=== PATIENT | female | born 1975 | race Caucasian/White ===

== ENCOUNTER 2023-02-27 17:14 | Inpatient (IN) | payer OTHER ==
[2023-02-27 19:26] VITALS: BMI 22.5
[2023-02-27] MEDS ORDERED: MAG HYDROX/AL HYDROX/SIMETH 30 ML UNIT-DOSE CUP PO PRN (21:58)
[2023-02-27] MEDS ORDERED: NALOXONE HCL 0.4 MG/ML VIAL IM PRN (21:58)
[2023-02-27] MEDS ORDERED: guaiFENesin 600 MG TABLET.ER (FP) PO PRN (21:58)
[2023-02-27] MEDS ORDERED: ONDANSETRON *ODT* 4 MG TABLET SL PRN (21:58)
[2023-02-27] MEDS ORDERED: MAGNESIUM HYDROX 2400MG/30ML ORAL SUSPENSION 30 ML CUP PO PRN (21:58)
[2023-02-27] MEDS ORDERED: LOPERAMIDE HCL 2 MG CAPSULE PO PRN (21:58)
[2023-02-27] MEDS ORDERED: chlordiazePOXIDE HCL 25 MG CAPSULE PO PRN (21:58)
[2023-02-27] MEDS ORDERED: BISMUTH SUBSALICYLATE 524 MG/30 ML PO PRN (21:58)
[2023-02-27] MEDS ORDERED: BENZOCAINE/MENTHOL (CHLORASEPTIC ) LOZENGE MM PRN (21:58)
[2023-02-27] MEDS ORDERED: POLYETHYLENE GLYCOL (HEALTHYLAX) 3350 17 GM PACKET PO PRN (21:58)
[2023-02-27] MEDS ORDERED: ACETAMINOPHEN 325 MG TABLET (FP) PO PRN (21:58)
[2023-02-27] MEDS ORDERED: NALOXONE HCL (KLOXXADO) 8 MG SPRAY NS PRN (21:58)
[2023-02-27] MEDS ORDERED: hydrOXYzine PAMOATE 25 MG CAPSULE (FP) PO PRN (21:58)
[2023-02-27] MEDS ORDERED: BENZONATATE 200 MG CAPSULE PO PRN (21:58)
[2023-02-27] MEDS ORDERED: DICYCLOMINE HCL 10 MG CAPSULE PO PRN (21:58)
[2023-02-27] MEDS ORDERED: IBUPROFEN 400 MG TABLET (FP) PO PRN (21:58)
[2023-02-27] MEDS: MELATONIN 5 MG TABLETS PO SCH (23:05)
[2023-02-27] MEDS: THIAMINE HCL 100 MG TABLET (FP) PO SCH (23:05)
[2023-02-27] MEDS: chlordiazePOXIDE HCL 25 MG CAPSULE PO SCH (23:06)
[2023-02-28] MEDS: chlordiazePOXIDE HCL 25 MG CAPSULE PO SCH ×4 (05:22→22:09)
[2023-02-28] MEDS: IBUPROFEN 600 MG TABLET (FP) PO PRN ×2 (05:24→17:22)
[2023-02-28] MEDS: PRENATAL VITAMINS W/ FOLIC ACID TABLET (FP) PO SCH (09:29)
[2023-02-28] MEDS: METHOCARBAMOL 500 MG TABLET PO PRN (09:29)
[2023-02-28 10:43] LABS: HEMATOCRIT 36.3 % (32.4-45.2); HEMOGLOBIN 12.6 GM/dL (10.7-15.3); MCH 30.8 pg (25.7-33.7); MCHC 34.6 g/dl (32.0-36.0); MEAN PLT VOLUME 7.3 fl (7.5-11.1); PLATELET COUNT 173 10^3/uL (134-434); RBC 4.08 M/mm3 (3.60-5.2); RDW 13.4 % (11.6-15.6); WHITE BLOOD COUNT 7.8 K/mm3 (4.0-10.0)
[2023-02-28 10:51] LABS: POTASSIUM 3.8 mmol/L (3.5-5.1)
[2023-02-28 10:53] LABS: CALCIUM 8.2 mg/dL (8.5-10.1)
[2023-02-28 10:54] LABS: BLOOD UREA NITROGEN 19.3 mg/dL (7-18)
[2023-02-28 10:57] LABS: CREATININE 0.9 mg/dL (0.55-1.3)
[2023-02-28 10:58] LABS: BILIRUBIN,TOTAL 0.8 mg/dL (0.2-1)
[2023-02-28 10:59] LABS: TOT PROT 6.4 g/dl (6.4-8.2)
[2023-02-28 11:50] LABS: HIV INTERPRETATION NEGATIVE (NEGATIVE)
[2023-02-28] MEDS: FLUoxetine HCL 20 MG CAPSULE PO SCH (11:51)
[2023-02-28] MEDS: cloNIDine HCL 0.1 MG TABLET PO PRN (11:52)
[2023-02-28] MEDS: GABAPENTIN 300 MG CAPSULE PO SCH ×2 (13:48→22:09)
[2023-02-28] MEDS: MELATONIN 5 MG TABLETS PO SCH (22:08)
[2023-02-28] MEDS: THIAMINE HCL 100 MG TABLET (FP) PO SCH (22:09)
[2023-03-01] MEDS: GABAPENTIN 300 MG CAPSULE PO SCH ×3 (05:43→22:23)
[2023-03-01] MEDS: chlordiazePOXIDE HCL 25 MG CAPSULE PO SCH ×4 (05:43→22:24)
[2023-03-01] MEDS: FLUoxetine HCL 20 MG CAPSULE PO SCH (10:00)
[2023-03-01] MEDS: PRENATAL VITAMINS W/ FOLIC ACID TABLET (FP) PO SCH (10:00)
[2023-03-01] MEDS: METHOCARBAMOL 500 MG TABLET PO PRN ×2 (10:03→22:23)
[2023-03-01] MEDS: cloNIDine HCL 0.1 MG TABLET PO PRN (17:26)
[2023-03-01 18:29] VITALS: TEMP 97.8
[2023-03-01] MEDS: THIAMINE HCL 100 MG TABLET (FP) PO SCH (22:22)
[2023-03-01] MEDS: MELATONIN 5 MG TABLETS PO SCH (22:22)
[2023-03-02] MEDS ORDERED: chlordiazePOXIDE HCL 10 MG CAPSULE PO PRN
[2023-03-02] MEDS: IBUPROFEN 600 MG TABLET (FP) PO PRN (02:44)
[2023-03-02] MEDS: GABAPENTIN 300 MG CAPSULE PO SCH (05:10)
[2023-03-02] MEDS: chlordiazePOXIDE HCL 10 MG CAPSULE PO SCH ×2 (05:11→10:56)
[2023-03-02 07:10] VITALS: RESP 18
[2023-03-02 09:27] VITALS: BP 151/69; PULSE 75
[2023-03-02] MEDS: PRENATAL VITAMINS W/ FOLIC ACID TABLET (FP) PO SCH (10:06)
[2023-03-02] MEDS: FLUoxetine HCL 20 MG CAPSULE PO SCH (10:07)
[2023-03-03] MEDS ORDERED: chlordiazePOXIDE HCL 10 MG CAPSULE PO SCH (05:00)
[2023-03-04] MEDS ORDERED: chlordiazePOXIDE HCL 10 MG CAPSULE PO ONE (05:00)
== END 2023-03-02 12:00 | disposition home or self-care (01) | DRG 774 ==
LOC: YASAS 17:14 → Y6N 22:22
PROVIDERS: ADMIT Allergy & Immunology; ATTEND Surgery
PROC: HZ2ZZZZ Detoxification Services for Substance Abuse Treatment (ICD-10-PCS; principal; 2023-02-27)
DX: F10.230 Alcohol dependence with withdrawal, uncomplicated (principal); F14.20 Cocaine dependence, uncomplicated; F19.20 Other psychoactive substance dependence, uncomplicated; F10.282 Alcohol dependence with alcohol-induced sleep disorder; F10.24 Alcohol dependence with alcohol-induced mood disorder; F32.A Depression, unspecified; F43.10 Post-traumatic stress disorder, unspecified; Z62.810 Personal history of physical and sexual abuse in childhood; Z91.410 Personal history of adult physical and sexual abuse; Z86.69 Personal history of other diseases of the nervous system and sense organs; Z28.310 Unvaccinated for COVID-19; Z28.9 Immunization not carried out for unspecified reason; Z56.0 Unemployment, unspecified; Z59.00 Homelessness unspecified
CPT/HCPCS: 36415; 80053; 80305; 81025; 85027; 86780; 87389; 87635; 87811; 93005; 93010; Q0162

== ENCOUNTER 2023-10-08 12:52 | Inpatient (IN) | payer OTHER ==
[2023-10-08 14:39] VITALS: BMI 23.0
[2023-10-08] MEDS ORDERED: NALOXONE HCL (KLOXXADO) 8 MG SPRAY NS PRN (16:27)
[2023-10-08] MEDS ORDERED: guaiFENesin 600 MG TABLET.ER (FP) PO PRN (16:27)
[2023-10-08] MEDS ORDERED: POLYETHYLENE GLYCOL (HEALTHYLAX) 3350 17 GM PACKET PO PRN (16:27)
[2023-10-08] MEDS ORDERED: IBUPROFEN 400 MG TABLET (FP) PO PRN (16:27)
[2023-10-08] MEDS ORDERED: BENZONATATE 200 MG CAPSULE PO PRN (16:27)
[2023-10-08] MEDS ORDERED: ONDANSETRON *ODT* 4 MG TABLET SL PRN (16:27)
[2023-10-08] MEDS ORDERED: BENZOCAINE/MENTHOL (CHLORASEPTIC ) LOZENGE MM PRN (16:27)
[2023-10-08] MEDS ORDERED: MAGNESIUM HYDROX 2400MG/30ML ORAL SUSPENSION 30 ML CUP PO PRN (16:27)
[2023-10-08] MEDS ORDERED: P-EPHED 60MG/TRIPROLIDI 2.5MG TABLET PO PRN (16:27)
[2023-10-08] MEDS ORDERED: ACETAMINOPHEN 325 MG TABLET (FP) PO PRN (16:27)
[2023-10-08] MEDS ORDERED: NALOXONE HCL 0.4 MG/ML VIAL IM PRN (16:27)
[2023-10-08] MEDS ORDERED: LOPERAMIDE HCL 2 MG CAPSULE PO PRN (16:27)
[2023-10-08] MEDS ORDERED: BISMUTH SUBSALICYLATE 524 MG/30 ML PO PRN (16:27)
[2023-10-08] MEDS ORDERED: chlordiazePOXIDE HCL 25 MG CAPSULE ONE (16:50)
[2023-10-08] MEDS: chlordiazePOXIDE HCL 25 MG CAPSULE PO SCH (16:54)
[2023-10-08] MEDS: THIAMINE 100 MG TABLET PO SCH (22:16)
[2023-10-08] MEDS: METHOCARBAMOL 500 MG TABLET PO PRN (22:16)
[2023-10-08] MEDS: MELATONIN 5 MG TABLETS PO SCH (22:16)
[2023-10-09] MEDS: PRENATAL VITAMINS W/ FOLIC ACID TABLET (FP) PO SCH (10:28)
[2023-10-09] MEDS: DICYCLOMINE HCL 10 MG CAPSULE PO PRN (10:30)
[2023-10-09 12:15] LABS: HEMATOCRIT 39.6 % (32.4-45.2); HEMOGLOBIN 13.1 GM/dL (10.7-15.3); MCH 29.2 pg (25.7-33.7); MEAN CELL VOLUME 88.5 fl (80-96); MEAN PLT VOLUME 7.5 fl (7.5-11.1); PLATELET COUNT 210 10^3/uL (134-434); RBC 4.48 M/mm3 (3.60-5.2); RDW 15.4 % (11.6-15.6); WHITE BLOOD COUNT 8.4 K/mm3 (4.0-10.0)
[2023-10-09 12:20] LABS: CHLORIDE 110 mmol/L (98-107); POTASSIUM 4.3 mmol/L (3.5-5.1); SODIUM 141 mmol/L (136-145)
[2023-10-09 12:25] LABS: BILIRUBIN,TOTAL 0.2 mg/dL (0.2-1)
[2023-10-09 12:38] LABS: ALBUMIN 2.8 g/dl (3.4-5.0); ANION GAP 5 mmol/L (4-13); BLOOD UREA NITROGEN 23.2 mg/dL (7-18); CALCIUM 8.5 mg/dL (8.5-10.1); CO2 26 mmol/L (21-32); GLUCOSE,RANDOM 99 mg/dL (74-106)
[2023-10-09 12:41] LABS: CREATININE 0.8 mg/dL (0.55-1.3); SGPT/ALT 22 U/L (13-61)
[2023-10-09 12:42] LABS: TOT PROT 5.9 g/dl (6.4-8.2)
[2023-10-09 12:43] LABS: ALK PHOS 65 U/L (45-117)
[2023-10-09 12:44] LABS: SGOT/AST 23 U/L (15-37)
[2023-10-09 13:12] LABS: HIV INTERPRETATION NEGATIVE (NEGATIVE)
[2023-10-09] MEDS: GABAPENTIN 100 MG CAPSULE PO SCH (22:02)
[2023-10-10] MEDS: hydrOXYzine PAMOATE 25 MG CAPSULE (FP) PO PRN (01:18)
[2023-10-10] MEDS: chlordiazePOXIDE HCL 25 MG CAPSULE PO PRN (01:19)
[2023-10-10] MEDS: chlordiazePOXIDE HCL 25 MG CAPSULE PO SCH (05:23)
[2023-10-10] MEDS: FLUoxetine HCL 20 MG CAPSULE PO SCH (10:39)
[2023-10-10] MEDS: METOPROLOL TARTRATE 25 MG TABLET (FP) PO ONE (21:00)
[2023-10-10] MEDS: MAG HYDROX/AL HYDROX/SIMETH 30 ML UNIT-DOSE CUP PO PRN (23:07)
[2023-10-11] MEDS: chlordiazePOXIDE HCL 10 MG CAPSULE PO SCH (05:24)
[2023-10-11] MEDS: amLODIPine BESYLATE 10 MG TABLET (FP) PO SCH (10:50)
[2023-10-11] MEDS: IBUPROFEN 600 MG TABLET (FP) PO PRN (16:52)
[2023-10-11] MEDS: chlordiazePOXIDE HCL 10 MG CAPSULE PO PRN (20:12)
[2023-10-11] MEDS: METHOCARBAMOL 500 MG TABLET PO PRN (22:25)
[2023-10-12] MEDS: chlordiazePOXIDE HCL 10 MG CAPSULE PO SCH (05:20)
[2023-10-12] MEDS: GABAPENTIN 400 MG CAPSULE PO SCH (22:22)
[2023-10-13] MEDS: chlordiazePOXIDE HCL 10 MG CAPSULE PO ONE (06:00)
[2023-10-13 08:57] VITALS: BP 146/89; PULSE 86; RESP 18; TEMP 98.1
== END 2023-10-13 09:10 | disposition home or self-care (01) | DRG 773 ==
LOC: YASAS 12:52 → Y3N 17:11
PROVIDERS: ADMIT Allergy & Immunology; ATTEND Surgery
PROC: HZ2ZZZZ Detoxification Services for Substance Abuse Treatment (ICD-10-PCS; principal; 2023-10-08)
DX: F10.230 Alcohol dependence with withdrawal, uncomplicated (principal); F14.20 Cocaine dependence, uncomplicated; F11.10 Opioid abuse, uncomplicated; F19.24 Other psychoactive substance dependence with psychoactive substance-induced mood disorder; F43.10 Post-traumatic stress disorder, unspecified; F32.A Depression, unspecified; I10 Essential (primary) hypertension; Z62.810 Personal history of physical and sexual abuse in childhood; Z91.410 Personal history of adult physical and sexual abuse; Z63.8 Other specified problems related to primary support group; Z63.0 Problems in relationship with spouse or partner; Z86.69 Personal history of other diseases of the nervous system and sense organs; Z28.310 Unvaccinated for COVID-19; Z28.9 Immunization not carried out for unspecified reason
CPT/HCPCS: 36415; 80053; 80307; 81025; 84520; 85027; 86780; 87389; 93005; 93010

== ENCOUNTER 2024-10-23 17:43 | Inpatient (IN) | payer OTHER ==
[2024-10-23 18:22] VITALS: BMI 22.3
[2024-10-23] MEDS ORDERED: IBUPROFEN 600 MG TABLET (FP) PO PRN (19:08)
[2024-10-23] MEDS ORDERED: hydrOXYzine PAMOATE 25 MG CAPSULE (FP) PO PRN (19:08)
[2024-10-23] MEDS ORDERED: LOPERAMIDE HCL 2 MG CAPSULE PO PRN (19:08)
[2024-10-23] MEDS ORDERED: guaiFENesin 600 MG TABLET.ER (FP) PO PRN (19:08)
[2024-10-23] MEDS ORDERED: ONDANSETRON *ODT* 4 MG TABLET SL PRN (19:08)
[2024-10-23] MEDS ORDERED: BISMUTH SUBSALICYLATE 524 MG/30 ML PO PRN (19:08)
[2024-10-23] MEDS ORDERED: NALOXONE (NARCAN) HCL 4 MG/0.1 ML SPRAY NS PRN (19:08)
[2024-10-23] MEDS ORDERED: MAG HYDROX/AL HYDROX/SIMETH 30 ML UNIT-DOSE CUP PO PRN (19:08)
[2024-10-23] MEDS ORDERED: MAGNESIUM HYDROX 2400MG/30ML ORAL SUSPENSION 30 ML CUP PO PRN (19:08)
[2024-10-23] MEDS ORDERED: IBUPROFEN 400 MG TABLET (FP) PO PRN (19:08)
[2024-10-23] MEDS ORDERED: BENZONATATE 200 MG CAPSULE PO PRN (19:08)
[2024-10-23] MEDS ORDERED: DICYCLOMINE HCL 10 MG CAPSULE PO PRN (19:08)
[2024-10-23] MEDS ORDERED: ACETAMINOPHEN 325 MG TABLET (FP) PO PRN (19:08)
[2024-10-23] MEDS ORDERED: POLYETHYLENE GLYCOL (HEALTHYLAX) 3350 17 GM PACKET PO PRN (19:08)
[2024-10-23] MEDS ORDERED: METHOCARBAMOL 500 MG TABLET PO PRN (19:08)
[2024-10-23] MEDS ORDERED: BENZOCAINE/MENTHOL (CHLORASEPTIC ) LOZENGE MM PRN (19:08)
[2024-10-23] MEDS ORDERED: chlordiazePOXIDE HCL 25 MG CAPSULE PO PRN (19:09)
[2024-10-23] MEDS: levETIRAcetam 500 MG TABLET (FP) PO SCH (22:44)
[2024-10-23] MEDS: MELATONIN 5 MG TABLETS PO SCH (22:44)
[2024-10-23] MEDS: THIAMINE 100 MG TABLET PO SCH (22:44)
[2024-10-23] MEDS: chlordiazePOXIDE HCL 25 MG CAPSULE PO SCH (22:58)
[2024-10-24] MEDS: PRENATAL VITAMINS W/ FOLIC ACID TABLET (FP) PO SCH (10:14)
[2024-10-24 10:58] LABS: HEMATOCRIT 38.7 % (34.1-44.9); HEMOGLOBIN 12.2 g/dL (11.2-15.7); MCHC 31.5 g/dl (32.2-35.5); MEAN CELL VOLUME 90.8 fl (79.4-94.8); MEAN PLT VOLUME 10.2 fl (9.4-12.3); PLATELET COUNT 167 x10^3/uL (182-369); RDW 13.6 % (12.2-17.1)
[2024-10-24 12:00] LABS: BLOOD UREA NITROGEN 21.4 mg/dL (7-18); CALCIUM 8.6 mg/dL (8.5-10.1)
[2024-10-24 12:02] LABS: CREATININE 0.9 mg/dL (0.55-1.3)
[2024-10-24 12:03] LABS: TOT PROT 5.8 g/dl (6.4-8.2)
[2024-10-24 12:06] LABS: BILIRUBIN,TOTAL 0.6 mg/dL (0.2-1)
[2024-10-24] MEDS ORDERED: methaDONE HCL 40 MG DISPERSABLE TABLET PO ONE (12:08)
[2024-10-25] MEDS: chlordiazePOXIDE HCL 25 MG CAPSULE PO SCH (05:55)
[2024-10-25] MEDS: FLUoxetine HCL 20 MG CAPSULE PO SCH (10:34)
[2024-10-25] MEDS: methaDONE HCL 10 MG TABLET PO SCH (11:56)
[2024-10-25] MEDS: GABAPENTIN 300 MG CAPSULE PO SCH (13:17)
[2024-10-26] MEDS ORDERED: chlordiazePOXIDE HCL 10 MG CAPSULE PO PRN
[2024-10-26] MEDS: chlordiazePOXIDE HCL 10 MG CAPSULE PO SCH (05:57)
[2024-10-27] MEDS: chlordiazePOXIDE HCL 10 MG CAPSULE PO SCH (05:56)
[2024-10-27 06:43] VITALS: RESP 16
[2024-10-27 09:16] VITALS: BP 116/91; PULSE 74; TEMP 98.2
[2024-10-28] MEDS ORDERED: chlordiazePOXIDE HCL 10 MG CAPSULE PO ONE (05:00)
== END 2024-10-27 11:00 | disposition home or self-care (01) | DRG 773 ==
LOC: YASAS 17:43 → Y6N 19:30
PROVIDERS: ADMIT Allergy & Immunology; ATTEND Family Medicine Addiction Medicine
PROC: HZ2ZZZZ Detoxification Services for Substance Abuse Treatment (ICD-10-PCS; principal; 2024-10-23)
DX: F10.230 Alcohol dependence with withdrawal, uncomplicated (principal); F11.20 Opioid dependence, uncomplicated; F14.20 Cocaine dependence, uncomplicated; F19.282 Other psychoactive substance dependence with psychoactive substance-induced sleep disorder; F19.280 Other psychoactive substance dependence with psychoactive substance-induced anxiety disorder; F19.24 Other psychoactive substance dependence with psychoactive substance-induced mood disorder; F43.10 Post-traumatic stress disorder, unspecified; F41.9 Anxiety disorder, unspecified; F32.A Depression, unspecified; M79.7 Fibromyalgia; M19.90 Unspecified osteoarthritis, unspecified site; Z62.810 Personal history of physical and sexual abuse in childhood; Z63.8 Other specified problems related to primary support group
CPT/HCPCS: 36415; 80053; 85027; 86780; 93005; 93010